=== PATIENT | male | born 1975 | race Caucasian/White ===

== ENCOUNTER 2020-06-02 11:29 | Emergency (ER) | payer SELFPAY ==
[~2020-06-02] VITALS: Ht 177.8 cm; Wt 79.5 kg
[2020-06-02 11:57] VITALS: Ht 177.8 cm; Wt 79.5 kg
[2020-06-02] MEDS ORDERED: FLUTICASONE PRO16 GM NASAL (12:25)
[2020-06-02] MEDS ORDERED: AUGMENTIN 875-11 TAB PO (12:25)
[2020-06-02] MEDS ORDERED: PREDNISONE20 MG PO (12:25)
[2020-06-02 12:47] VITALS: BP 152/79
== END 2020-06-02 12:46 | disposition home or self-care (01) ==
LOC: D.ER 11:29
DX: J01.90 Acute sinusitis, unspecified (principal)